=== PATIENT | male | born 1990 ===

== ENCOUNTER 2022-07-15 06:21 | Day surgery (SDC) | payer OTHER ==
[2022-07-15] MEDS ORDERED: PERCOCET 5-3251 EACH PO (11:41)
== END 2022-07-15 15:00 | disposition home or self-care (01) ==
LOC: CIR.AMB 06:21
PROVIDERS: ATTEND Surgery
DX: C73 Malignant neoplasm of thyroid gland (principal); E06.3 Autoimmune thyroiditis; F12.90 Cannabis use, unspecified, uncomplicated; Z20.822 Contact with and (suspected) exposure to COVID-19